=== PATIENT | male | born 1985 | race Caucasian/White ===

== ENCOUNTER 2025-03-14 03:13 | Observation (INO) ==
[2025-03-14] MEDS: MoRPHine SULFATE 4 MG/ML 1 ML CARP\\VIAL IV STA (03:25)
[2025-03-14] MEDS: ONDANSETRON INJ 2 MG/ML 2 ML VIAL IV STA (03:25)
--- NOTE | 2025-03-14 03:25 | Emergency Department Note ---
Impression & Plan Kidney stone Admission ED Provider Note HPI: History obtained from patient. The patient is a 40-year-old male who presents to the emergency department with chief complaint of left flank pain as well as nausea and vomiting. Patient states that his pain developed about 2 hours prior to arrival to the ED tonight. Patient states it does feel similar to kidney stones that he has had in the past. On arrival here to the ER, the patient is hemodynamically stable. He did receive Toradol and Zofran prior to arrival via EMS. Patient otherwise appears to be in no acute distress. ROS: - Per HPI Differential Diagnosis: Kidney stone, pyelonephritis, urinary tract infection, diverticulitis flare, acute appendicitis, amongst other potential pathologies. *Outpatient medications and allergy history reviewed. PE: General: Alert HEENT: Normocephalic, trachea midline Eyes: Extraocular eye movement is intact, no scleral erythema Pulmonary: Clear to auscultation bilaterally, no wheezing Cardio: Regular rate and rhythm GI: Abdomen is soft to palpation : No suprapubic tenderness, moderate left flank tenderness to palpation MSK: No evidence of trauma or malformation of the extremities, no edema Skin: No evidence of rash Neuro: Alert, no focal deficits Psychiatric: Cooperative INDEPENDENT INTERPRETATIONS: monitor worker: (As interpreted by myself): - An order was placed for continuous cardiac monitoring - Patient was noted to be in sinus rhythm with a rate of 90 EKG: (As interpreted by myself): Rate: 87 Rhythm: Normal sinus rhythm Intervals: Within normal limits ST changes: No ST elevation Time: 0329 Interventions provided in ED: - IV morphine, IV Zofran, IV Dilaudid, IV fluid bolus Medical Decision Making: IV was established and lab work obtained, patient was placed on vehicle monitor technician. Lab work shows a mild leukocytosis at 12.95, hemoglobin is normal, platelet count is normal, CMP does not show any evidence of any critical findings. No evidence of acute kidney injury, troponin is negative x 1. EKG per my interpretation shows normal sinus rhythm without any acute ischemic changes. CT imaging of the abdomen and pelvis was obtained and shows evidence of a 4 mm kidney stone on the left side with some associated hydronephrosis, stone is noted to be at the area just proximal to the UVJ. Urinalysis does not show evidence of infection. Patient did require multiple doses of opioid pain medicine here in the ED for control. He was given Toradol prior to arrival to the ED. I discussed all of the above findings with the patient, he tells me his pain is greatly improved on my reassessment. He states he has seen Dr. Baker in the past from urology for his stones. He was given information to call and schedule an appointment and also an ambulatory referral was placed. Shortly after the patient's second dose of Dilaudid, he was feeling improved but then again began to complain of pain, I reevaluated the patient and he was stating that he was having again severe pain in the left flank. Given this he was given another dose of Dilaudid and he will require admission for intractable pain. Patient was in agreement to this plan. Urology consultation was placed. Case was discussed with the on-call hospitalist, Dr. Hackett, the patient was placed for admission in stable condition. Diagnosis: 1. Kidney stone, left ureter, acute 2. Intractable left flank pain secondary to obstructive kidney stone, acute 3. Hematuria, acute 4. Hypertension Disposition: Admission Clifford Burnette DO Emergency Medicine Past Med/Surg History Problem List (Updated 03/14/25 @ 05:01 by Clifford Burnette DO) Kidney stone (Acute) Gross hematuria Nephrolithiasis Medical History Asthma Surgical History No pertinent past surgical history Family History Grandfather (Maternal) Prostate cancer Father Diabetes Heart disease Mother Hypertension Social History Smoking Status: Never smoker Preferred Language: Argentine marital status: Single current occupational status: employed Feels Safe at Home: Yes Allergies Allergies Allergy/AdvReac Type Severity Reaction Status Date / Time amoxicillin Allergy Mild GI UPSET Verified 02/08/23 15:13 clavulanic acid Allergy Mild GI UPSET Verified 02/08/23 15:13 Dust AdvReac Unknown Uncoded 02/08/23 15:13 Dust Mite AdvReac Unknown Uncoded 02/08/23 15:13 Home Meds Home Medications Medication Instructions Recorded Confirmed ondansetron 4 mg disintegrating 4 mg translingual Q8H PRN Nausea 06/27/21 07/02/21 tablet oxycodone-acetaminophen 5 mg-325 1 tab PO Q4 PRN Pain 06/27/21 07/02/21 mg tablet Previous Rx's Medication Instructions Recorded metoclopramide HCl 10 mg tablet 10 mg PO BID PRN nausea and 06/27/21 (Reglan) vomiting #10 tabs ketorolac 10 mg tablet 10 mg PO TID PRN pain #10 tabs 07/02/21 oxycodone 5 mg tablet 5 mg PO Q4H PRN pain #15 tabs 08/09/21 tamsulosin 0.4 mg capsule 0.4 mg PO DAILY #30 caps 07/13/22 methylprednisolone 4 mg tablets in 4 mg PO DIRECTED #21 ea 05/01/23 a dose pack (Medrol (Shahbaz)) Results & Data (ED) Vital Signs Vital Signs - 24 hr 03/14/25 03:31 03/14/25 03:34 03/14/25 04:24 Temperature 36.8 C Temperature Source Oral Pulse Rate 78 94 H Pulse Rate [Finger] 88 Respiratory Rate 26 H 18 Blood Pressure 188/110 H Blood Pressure [Right Arm] 192/121 H Blood Pressure Mean 136 Blood Pressure Mean [Right Arm] 144 Pulse Oximetry 97 95 Oxygen Delivery Method Room Air Room Air Sepsis Recent Fever Within 48 Hours No Sepsis New/Unexplained Change in Mental Status N/A Sepsis Action Taken by Nursing No Action Required Laboratory Data 03/14/25 03:19 03/14/25 03:19 Lab Results 03/14/25 03/14/25 Range/Units 03:19 04:09 WBC 12.95 H (4.8-10.8) K/ul RBC 5.73 (4.70-6.10) M/uL Hgb 15.5 (14.0-18.0) g/dl Hct 45.5 (42.0-52.0) % MCV 79.4 L (80.0-100.0) fL MCH 27.1 (25.0-34.0) pg MCHC 34.1 (32.0-36.0) g/dL RDW Std Deviation 38.5 (36.4-46.3) fL RDW Coeff of David 13.5 (11.5-14.5) % Plt Count 245 (130-400) K/uL MPV 10.3 (9.4-12.4) fL Immature Gran % (Auto) 0.7 % Neut % (Auto) 70.1 % Lymph % (Auto) 22.4 % [place] % (Auto) 6.3 % Eos % (Auto) 0.2 % Baso % (Auto) 0.3 % Neut # (Auto) 9.08 H (1.40-6.50) K/uL Lymph # (Auto) 2.90 (1.20-3.40) K/uL [place] # (Auto) 0.82 H (0.11-0.59) K/uL Eos # (Auto) 0.02 (0.00-0.50) K/uL Baso # (Auto) 0.04 (0.00-0.20) K/uL Immature Gran # (Auto) 0.09 (0.01-0.20) K/uL PT 11.6 (9.0-12.0) Seconds INR 1.1 (0.9-1.1) Sodium 139 (136-145) mmol/L Potassium 3.8 (3.5-5.1) mmol/L Chloride 102 (98-107) mmol/L Carbon Dioxide 30 (21-32) mmol/L Anion Gap 7 (3-11) BUN 13 (6-23) mg/dl Creatinine 0.97 (0.6-1.4) mg/dl Est Cr Clr Drug Dosing 123.4 ml/min eGFR 101.21 BUN/Creatinine Ratio 13.4 (10-20) Glucose 170 H (70-99(Fasting)) mg/dl Calcium 8.6 (8.6-10.3) mg/dl Total Bilirubin 0.7 (0.2-1.0) mg/dl AST 19 (13-39) U/L ALT 40 (7-52) U/L Alkaline Phosphatase 52 (34-104) U/L Troponin I High Sens 4.7 (0-20) pg/ml Total Protein 6.6 (6.0-8.3) gm/dl Albumin 4.3 (3.4-5.0) gm/dl Globulin 2.3 L (2.5-4.0) gm/dl Albumin/Globulin Ratio 1.9 (0.9-2) Lipase 6 L (11-82) U/L Urine Color Yellow Urine Appearance Clear (Clear) Urine pH 5.0 (4.5-7.5) Ur Specific [place] 1.020 (1.000-1.030) Urine Protein 2+ H (Negative) Urine Glucose (UA) Negative (Negative) Urine Ketones Trace H (Negative) Urine Blood 2+ H (Negative) Urine Nitrite Negative (Negative) Urine Bilirubin Negative (Negative) Urine Urobilinogen Negative (Negative) Ur Leukocyte Esterase Negative (Negative) Urine WBC (Auto) 0-5 (0-5) /hpf Urine RBC (Auto) 3-5 H (0-2) /hpf U Hyaline Cast (Auto) 3-5 H (0-2) /lpf U Epithel Cells (Auto) 0-2 (0-2) /hpf Urine Bacteria (Auto) None Seen (None Seen) Urine Comment Administered Medications Discontinued Medications Hydromorphone HCl (Hydromorphone Inj 1 Mg/Ml Syringe) 1 mg IV NOW STA Stop: 03/14/25 03:53 Last Admin: 03/14/25 04:07 Dose: 1 mg Documented By: OLI Hydromorphone HCl (Hydromorphone Inj 1 Mg/Ml Syringe) 1 mg IV NOW STA Stop: 03/14/25 04:33 Last Admin: 03/14/25 04:34 Dose: 1 mg Documented By: VIMAL Sodium Chloride (Nss) 1,000 mls @ 999 mls/hr IV .Q1H1M ONE Stop: 03/14/25 04:24 Last Infusion: 03/14/25 04:32 Dose: Infused Documented By: Admin: 03/14/25 03:26 Dose: 999 mls/hr Documented By: VIMAL Sodium Chloride (Nss) 500 mls @ 999 mls/hr IV .Q31M ONE Stop: 03/14/25 05:29 Last Admin: 03/14/25 05:01 Dose: 999 mls/hr Documented By: VIMAL Morphine Sulfate (Morphine Sulfate 4 Mg/Ml 1 Ml Carp\Vial) 4 mg IV NOW STA Stop: 03/14/25 03:24 Last Admin: 03/14/25 03:25 Dose: 4 mg Documented By: VIMAL Ondansetron HCl (Ondansetron Inj 2 Mg/Ml 2 Ml Vial) 4 mg IV NOW STA Stop: 03/14/25 03:24 Last Admin: 03/14/25 03:25 Dose: 4 mg Documented By: [facility] Imaging Data Radiologist's Impression: Abdomen/Pelvis CT 03/14/25 03:23 EXAM: CT abd pelvis wo con CLINICAL HISTORY: L flank pain TECHNIQUE: Contiguous axial images were obtained from the level of the diaphragm to the pubic symphysis without intravenous or oral contrast. Coronal and sagittal reconstructions were also performed and indicated to increase the sensitivity for detecting clinically relevant pathology. The CT scan was performed according to ALARA (as low as reasonably achievable) principles. 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 FINDINGS: The visualized lung bases are clear. Evaluation of the abdominal and pelvic visceral organs is limited without intravenous contrast. The unenhanced liver, spleen, pancreas, and adrenal glands are grossly unremarkable. The gallbladder is present. The kidneys are normal in size and attenuation without obvious calcification. The left kidney shows hydronephrosis and hydroureter up to an obstructing calculus of size 4 mm, which is noted in the left lower ureter just proximal to the vesicoureteric junction. No adenopathy or fluid collections are seen. There is no evidence of focal or diffuse bowel wall thickening or bowel obstruction. No imaging evidence of appendicitis. The aorta is normal in caliber. The urinary bladder is normal in contour. The pelvic viscera are grossly unremarkable. No aggressive appearing osseous lesions are identified. IMPRESSION: The left kidney shows hydronephrosis and hydroureter up to an obstructing calculus of size 4 mm, which is noted in the left lower ureter just proximal to the vesicoureteric junction. This is a new finding. The prior right ureteric stone has passed. The prior left nephrolithiasis is also not seen. Electronically signed by Devin Montesinos 03-14-2025 04:52 AM Discharge Plan Visit Data Chief Complaint: Flank Pain Stated Complaint: L FLANK PAIN, HYPERTENSIVE ED Provider: Clifford Burnette Discharge Problem: Kidney stone Patient Disposition: Admitted As Inpatient Condition: Good Discharge Instructions Krames/Other Patient Handouts: ED [facility] Kidney Stone Forms Stand Alone Forms: [facility] [employer], Important Visit Information Prescriptions Prescriptions: No Action ketorolac 10 mg tablet 10 mg PO TID PRN (Reason: pain) Qty: 10 0RF Rx Instructions: Take as needed for kidney stone pain. Do not take with ibuprofen. tamsulosin 0.4 mg capsule 0.4 mg PO DAILY Qty: 30 0RF oxycodone 5 mg tablet 5 mg PO Q4H PRN (Reason: pain) Qty: 15 0RF Rx Instructions: Initial Treatment metoclopramide HCl [Reglan] 10 mg tablet 10 mg PO BID PRN (Reason: nausea and vomiting) Qty: 10 0RF Rx Instructions: administer 30 minutes before meals ondansetron 4 mg tablet,disintegrating 4 mg translingual Q8H PRN (Reason: Nausea) oxycodone-acetaminophen 5-325 mg tablet 1 tab PO Q4 PRN (Reason: Pain) methylprednisolone [Medrol (Shahbaz)] 4 mg tablets,dose pack 4 mg PO DIRECTED Qty: 21 0RF Ambulatory Orders: Urology Amb Referral (Routine) Timeframe: 1 Day Location: None Selected Ordered By: Clifford Burnette Referrals Referrals: Isaiah Romero DO [Primary Care Provider] - Juan C Baker MD [Physician] -
[2025-03-14] MEDS: SODIUM CHLORIDE 0.9% 1,000 ML IV ONE ×2 (03:26→06:39)
[2025-03-14 03:32] LABS: Hematocrit (blood only) 45.5 % (42.0-52.0); Hemoglobin 15.5 g/dl (14.0-18.0); Immature Granulocytes # (auto) 0.09 K/uL (0.01-0.20); Immature Granulocytes % (auto) 0.7 %; Mean Corpuscular Hemoglobin 27.1 pg (25.0-34.0); Mean Corpuscular Volume 79.4 fL (80.0-100.0); Platelet Count 245 K/uL (130-400); RDW Standard Deviation 38.5 fL (36.4-46.3); Red Blood Count 5.73 M/uL (4.70-6.10); White Blood Count 12.95 K/ul (4.8-10.8)
[2025-03-14 03:50] LABS: Alanine Aminotransferase 40.0 U/L (7-52); Albumin Globulin Ratio 1.9 (0.9-2); Albumin Level 4.3 gm/dl (3.4-5.0); Alkaline Phosphatase 52.0 U/L (34-104); Anion Gap 7.0 (3-11); Bilirubin,Total 0.7 mg/dl (0.2-1.0); Blood Urea Nitrogen 13.0 mg/dl (6-23); Calcium 8.6 mg/dl (8.6-10.3); Carbon Dioxide 30.0 mmol/L (21-32); Chloride 102.0 mmol/L (98-107); Creatinine Clr Calc Pharmacy 123.4 ml/min; Globulin 2.3 gm/dl (2.5-4.0); Glucose 170.0 mg/dl (70-99(Fasting)); Lipase 6.0 U/L (11-82); Potassium 3.8 mmol/L (3.5-5.1); Sodium 139.0 mmol/L (136-145); Total Protein 6.6 gm/dl (6.0-8.3)
[2025-03-14 04:04] LABS: INR 1.1 (0.9-1.1); Prothrombin Time 11.6 Seconds (9.0-12.0)
[2025-03-14] MEDS: HYDROmorphone INJ 1 MG/ML SYRINGE IV STA ×3 (04:07→05:31)
[2025-03-14 04:29] LABS: Appearance Urine Clear (Clear); Bacteria Urine Automated None Seen (None Seen); Epithelial Cell Urine Auto 0-2 /hpf (0-2); Glucose Urine UA Negative (Negative); WBC Urine Automated 0-5 /hpf (0-5)
--- NOTE | 2025-03-14 04:52 | CT Scan Report ---
EXAM: CT abd pelvis wo con CLINICAL HISTORY: L flank pain TECHNIQUE: Contiguous axial images were obtained from the level of the diaphragm to the pubic symphysis without intravenous or oral contrast. Coronal and sagittal reconstructions were also performed and indicated to increase the sensitivity for detecting clinically relevant pathology. The CT scan was performed according to ALARA (as low as reasonably achievable) principles. 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 FINDINGS: The visualized lung bases are clear. Evaluation of the abdominal and pelvic visceral organs is limited without intravenous contrast. The unenhanced liver, spleen, pancreas, and adrenal glands are grossly unremarkable. The gallbladder is present. The kidneys are normal in size and attenuation without obvious calcification. The left kidney shows hydronephrosis and hydroureter up to an obstructing calculus of size 4 mm, which is noted in the left lower ureter just proximal to the vesicoureteric junction. No adenopathy or fluid collections are seen. There is no evidence of focal or diffuse bowel wall thickening or bowel obstruction. No imaging evidence of appendicitis. The aorta is normal in caliber. The urinary bladder is normal in contour. The pelvic viscera are grossly unremarkable. No aggressive appearing osseous lesions are identified. IMPRESSION: The left kidney shows hydronephrosis and hydroureter up to an obstructing calculus of size 4 mm, which is noted in the left lower ureter just proximal to the vesicoureteric junction. This is a new finding. The prior right ureteric stone has passed. The prior left nephrolithiasis is also not seen. Electronically signed by Devin Montesinos 03-14-2025 04:52 AM
[2025-03-14] MEDS: SODIUM CHLORIDE 0.9% 500 ML IV ONE (05:01)
[2025-03-14] MEDS: PERCOCET 5/325MG HOMEPACK PO ONE (05:33)
[2025-03-14] MEDS: TAMSULOSIN HCL 0.4 MG CAP PO ONE (05:38)
--- NOTE | 2025-03-14 05:43 | History & Physical Report ---
Date of Service March 14, 2025 Assessment & Plan (1) Asymptomatic hypertensive urgency: Plan: Assessment and plan below following discussion of case with ED provider and reviewing patient history/pertinent normal/abnormal diagnostic test results. Hypertensive urgency Secondary to obstructive uropathy from recurrent kidney stone No sepsis for now DM2 on oral medications, BG currently elevated secondary to current steroid Rx for posttraumatic sacral pain, outpatient hemoglobin A1c from January 2025 was 5.8 Admit to med/tele IV hydralazine now Analgesia Initiate maintenance lisinopril if with persistent BP elevation Flomax trial Strain urine Urology consult re: obstructive uropathy (Patient known to [facility] N.p.o. until patient seen by urology in anticipation of procedure Basal bolus insulin adjusted for n.p.o. status, ISS BG goal 110-140 DVT prophylaxis. SCDs Re: Hematuria Full code Text document was generated using [employer] voice recognition software. It may contain grammatical or spelling errors. Kindly contact undersigned for clarification of any documentation item in question. History of Present Illness Chief Complaint: Left flank pain Primary Care Provider: Isaiah Romero DO History obtained from patient, family, and records. Medical history significant for hypertension, DM2 on oral medications, urolithiasis, GERD, tailbone pain currently on steroid Rx. Patient with persistent left buttock pain after participating in a [employer] event last month. Outpatient plain x-ray negative. Improving symptoms after recent outpatient steroid course started by PCP a few days ago. Patient experienced achy left flank pain last night associated with nausea, vomiting, hematuria. No fever, no chills. No headache. No chest pain, no SOB. Reminiscent of kidney stone pain. Intractable discomfort at the ER. Highest SBP of 190s documented at the ER. 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 Allergies Allergy/AdvReac Type Severity Reaction Status Date / Time amoxicillin Allergy Mild GI UPSET Verified 02/08/23 15:13 clavulanic acid Allergy Mild GI UPSET Verified 02/08/23 15:13 Dust AdvReac Unknown Uncoded 02/08/23 15:13 Dust Mite AdvReac Unknown Uncoded 02/08/23 15:13 Home Medications Medication Instructions Recorded Confirmed Type methylprednisolone 4 mg tablets in 4 mg PO DIRECTED #21 ea 05/01/23 03/14/25 Rx a dose pack (Medrol (Shahbaz)) Contour Next Test Strips 03/14/25 03/14/25 History FreeStyle Gaudencio 3 Plus Sensor 03/14/25 03/14/25 History FreeStyle Gaudencio 3 [place] 03/14/25 03/14/25 History Multi Vitamin 1 tab PO QAM 03/14/25 03/14/25 History Vitamin D3 2,000 units PO QAM 03/14/25 03/14/25 History albuterol sulfate 2 puff PO QID PRN Shortness Of 03/14/25 03/14/25 History Breath Or Wheezing blood-glucose meter (Contour Next 03/14/25 03/14/25 History EZ Meter kit) clindamycin phosphate 1 % lotion 1 applic topical BID 03/14/25 03/14/25 History cyanocobalamin (vitamin B-12) 100 100 mcg PO DAILY 03/14/25 03/14/25 History mcg tablet lancets 03/14/25 03/14/25 History metformin 1,000 mg tablet,extended 1,000 mg PO DAILY 03/14/25 03/14/25 History release 24hr (osmotic) methocarbamol 750 mg tablet 750 mg PO QID PRN Muscle spasms 03/14/25 03/14/25 History mupirocin 2 % topical ointment 1 applic topical DIRECTED 03/14/25 03/14/25 History Past Med/Surg History Problem List (Updated 03/14/25 @ 06:48 by Khalif Hackett MD) Asymptomatic hypertensive urgency Kidney stone (Acute) Gross hematuria Nephrolithiasis Medical History Asthma Surgical History No pertinent past surgical history Family History Grandfather (Maternal) Prostate cancer Father Diabetes Heart disease Mother Hypertension Social History Smoking Status: Never smoker Preferred Language: Turkmen marital status: Single current occupational status: employed Feels Safe at Home: Yes Review of Systems Review of Systems: As per HPI, all other systems reviewed and negative Physical Exam Physical Exam: GENERAL: Pleasant, slightly uncomfortable, obese, no respiratory distress SKIN: Normal color, warm HEENT: Alopecia, pink palpebral conjunctivae, no ptosis, dry buccal mucosa NECK : Supple, no tenderness CHEST : CTA, no tenderness HEART : RRR, no obvious murmurs ABDOMEN: Some distention, nontender BACK : Left flank tenderness EXTREMITIES : No LE swelling/tenderness, palpable pulses, no other conspicuous deformities noted NEUROLOGIC : Coherent, no facial asymmetry, no other gross focality Results & Data Results & Data Vital Signs (Past 12 Hours) Vital Signs Temp Pulse Pulse Resp BP BP Pulse Ox 03/14/25 04:24 88 18 192/121 H 95 03/14/25 03:34 94 H 03/14/25 03:31 36.8 C 78 26 H 188/110 H 97 O2 Del Method 03/14/25 04:24 Room Air 03/14/25 03:34 03/14/25 03:31 Room Air Laboratory Results Laboratory Results WBC 12.95 K/ul (4.8-10.8) H 03/14/25 03:19 RBC 5.73 M/uL (4.70-6.10) 03/14/25 03:19 Hgb 15.5 g/dl (14.0-18.0) 03/14/25 03:19 Hct 45.5 % (42.0-52.0) 03/14/25 03:19 MCV 79.4 fL (80.0-100.0) L 03/14/25 03:19 MCH 27.1 pg (25.0-34.0) 03/14/25 03:19 MCHC 34.1 g/dL (32.0-36.0) 03/14/25 03:19 RDW Std Deviation 38.5 fL (36.4-46.3) 03/14/25 03:19 RDW Coeff of David 13.5 % (11.5-14.5) 03/14/25 03:19 Plt Count 245 K/uL (130-400) 03/14/25 03:19 MPV 10.3 fL (9.4-12.4) 03/14/25 03:19 Immature Gran % (Auto) 0.7 % 03/14/25 03:19 Neut % (Auto) 70.1 % 03/14/25 03:19 Lymph % (Auto) 22.4 % 03/14/25 03:19 [place] % (Auto) 6.3 % 03/14/25 03:19 Eos % (Auto) 0.2 % 03/14/25 03:19 Baso % (Auto) 0.3 % 03/14/25 03:19 Neut # (Auto) 9.08 K/uL (1.40-6.50) H 03/14/25 03:19 Lymph # (Auto) 2.90 K/uL (1.20-3.40) 03/14/25 03:19 [place] # (Auto) 0.82 K/uL (0.11-0.59) H 03/14/25 03:19 Eos # (Auto) 0.02 K/uL (0.00-0.50) 03/14/25 03:19 Baso # (Auto) 0.04 K/uL (0.00-0.20) 03/14/25 03:19 Immature Gran # (Auto) 0.09 K/uL (0.01-0.20) 03/14/25 03:19 PT 11.6 Seconds (9.0-12.0) 03/14/25 03:19 INR 1.1 (0.9-1.1) 03/14/25 03:19 Sodium 139 mmol/L (136-145) 03/14/25 03:19 Potassium 3.8 mmol/L (3.5-5.1) 03/14/25 03:19 Chloride 102 mmol/L (98-107) 03/14/25 03:19 Carbon Dioxide 30 mmol/L (21-32) 03/14/25 03:19 Anion Gap 7 (3-11) 03/14/25 03:19 BUN 13 mg/dl (6-23) 03/14/25 03:19 Creatinine 0.97 mg/dl (0.6-1.4) 03/14/25 03:19 Est Cr Clr Drug Dosing 123.4 ml/min 03/14/25 03:19 eGFR 101.21 03/14/25 03:19 BUN/Creatinine Ratio 13.4 (10-20) 03/14/25 03:19 Glucose 170 mg/dl (70-99(Fasting)) H 03/14/25 03:19 Calcium 8.6 mg/dl (8.6-10.3) 03/14/25 03:19 Total Bilirubin 0.7 mg/dl (0.2-1.0) 03/14/25 03:19 AST 19 U/L (13-39) 03/14/25 03:19 ALT 40 U/L (7-52) 03/14/25 03:19 Alkaline Phosphatase 52 U/L (34-104) 03/14/25 03:19 Troponin I High Sens 4.7 pg/ml (0-20) 03/14/25 03:19 Total Protein 6.6 gm/dl (6.0-8.3) 03/14/25 03:19 Albumin 4.3 gm/dl (3.4-5.0) 03/14/25 03:19 Globulin 2.3 gm/dl (2.5-4.0) L 03/14/25 03:19 Albumin/Globulin Ratio 1.9 (0.9-2) 03/14/25 03:19 Lipase 6 U/L (11-82) L 03/14/25 03:19 Urine Color Yellow 03/14/25 04:09 Urine Appearance Clear (Clear) 03/14/25 04:09 Urine pH 5.0 (4.5-7.5) 03/14/25 04:09 Ur Specific [place] 1.020 (1.000-1.030) 03/14/25 04:09 Urine Protein 2+ (Negative) H 03/14/25 04:09 Urine Glucose (UA) Negative (Negative) 03/14/25 04:09 Urine Ketones Trace (Negative) H 03/14/25 04:09 Urine Blood 2+ (Negative) H 03/14/25 04:09 Urine Nitrite Negative (Negative) 03/14/25 04:09 Urine Bilirubin Negative (Negative) 03/14/25 04:09 Urine Urobilinogen Negative (Negative) 03/14/25 04:09 Ur Leukocyte Esterase Negative (Negative) 03/14/25 04:09 Urine WBC (Auto) 0-5 /hpf (0-5) 03/14/25 04:09 Urine RBC (Auto) 3-5 /hpf (0-2) H 03/14/25 04:09 U Hyaline Cast (Auto) 3-5 /lpf (0-2) H 03/14/25 04:09 U Epithel Cells (Auto) 0-2 /hpf (0-2) 03/14/25 04:09 Urine Bacteria (Auto) None Seen (None Seen) 03/14/25 04:09 Urine Comment 03/14/25 04:09 Impressions Abdomen/Pelvis CT 03/14/25 03:23 EXAM: CT abd pelvis wo con CLINICAL HISTORY: L flank pain TECHNIQUE: Contiguous axial images were obtained from the level of the diaphragm to the pubic symphysis without intravenous or oral contrast. Coronal and sagittal reconstructions were also performed and indicated to increase the sensitivity for detecting clinically relevant pathology. The CT scan was performed according to ALARA (as low as reasonably achievable) principles. 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 FINDINGS: The visualized lung bases are clear. Evaluation of the abdominal and pelvic visceral organs is limited without intravenous contrast. The unenhanced liver, spleen, pancreas, and adrenal glands are grossly unremarkable. The gallbladder is present. The kidneys are normal in size and attenuation without obvious calcification. The left kidney shows hydronephrosis and hydroureter up to an obstructing calculus of size 4 mm, which is noted in the left lower ureter just proximal to the vesicoureteric junction. No adenopathy or fluid collections are seen. There is no evidence of focal or diffuse bowel wall thickening or bowel obstruction. No imaging evidence of appendicitis. The aorta is normal in caliber. The urinary bladder is normal in contour. The pelvic viscera are grossly unremarkable. No aggressive appearing osseous lesions are identified. IMPRESSION: The left kidney shows hydronephrosis and hydroureter up to an obstructing calculus of size 4 mm, which is noted in the left lower ureter just proximal to the vesicoureteric junction. This is a new finding. The prior right ureteric stone has passed. The prior left nephrolithiasis is also not seen. Electronically signed by Devin Montesinos 03-14-2025 04:52 AM Diagnostic Findings EKG as per my interpretation :Rate 85, NSR, normal axis, LVH, T wave flattening lateral leads
[2025-03-14] MEDS ORDERED: LORazepam 0.5 MG TAB PO PRN (06:17)
[2025-03-14] MEDS ORDERED: METHOCARBAMOL 750 MG TABLET PO PRN (06:25)
[2025-03-14] MEDS: PROMETHAZINE 12.5 MG/50.5 ML BAG IV PRN (06:39)
[2025-03-14] MEDS: methylPREDNISolone 4 MG TAB PO SCH ×2 (07:48→12:15)
[2025-03-14] MEDS: CYANOCOBALAMIN (B-12) 100 MCG TABLET PO SCH (07:51)
[2025-03-14] MEDS: MULTIVITAMIN TAB PO SCH (07:51)
[2025-03-14] MEDS: LANTUS PER UNIT CHARGE SQ SCH (08:18)
[2025-03-14] MEDS: LACTATED RINGER'S 1,000 ML IV SCH (08:24)
[2025-03-14] MEDS: HYDROmorphone INJ 1 MG/ML SYRINGE IV PRN (08:28)
--- NOTE | 2025-03-14 08:38 | Electrocardiogram Report ---
Test Reason : Blood Pressure : */* mmHG Vent. Rate : 87 BPM Atrial Rate : 87 BPM P-R Int : 114 ms QRS Dur : 78 ms QT Int : 376 ms P-R-T Axes : 43 9 64 degrees QTcB Int : 452 ms Normal sinus rhythm Minimal voltage criteria for LVH, may be normal variant Nonspecific ST and T wave abnormality Abnormal ECG When compared with ECG of 19-Jun-2023 21:29, Nonspecific T wave abnormality has replaced inverted T waves in Lateral leads Confirmed by Jack Sandhu ([id number]) on 03/14/2025 8:38:01 AM Referred By: REFERRED SELF Confirmed By: Jack Sandhu
[2025-03-14] MEDS ORDERED: DEXTROSE 50% 50 ML SYRINGE IV PRN (08:49)
[2025-03-14] MEDS ORDERED: GLUCAGON FOR INJ 1 MG VIAL SQ PRN (08:49)
[2025-03-14] MEDS ORDERED: GLUCOSE 10 TAB/TUBE PO PRN (08:49)
[2025-03-14] MEDS ORDERED: GLUCOSE 40% GEL 15 GM TUBE PO PRN (08:49)
[2025-03-14] MEDS ORDERED: CARBOHYDRATES FOR HYPOGLYCEMIA PO PRN (08:49)
[2025-03-14] MEDS: INSULIN ASPART PER UNIT CHARGE SC SCH (08:55)
[2025-03-14] MEDS: LOSARTAN POTASSIUM 50 MG TAB PO SCH (09:19)
--- NOTE | 2025-03-14 09:20 | Hospitalist Progress Note ---
Date of Service March 14, 2025 Assessment & Plan (1) Asymptomatic hypertensive urgency: Plan: Renal colic Obstructive uropathy SIRS --CT abd:The left kidney shows hydronephrosis and hydroureter up to an obstructing calculus of size 4 mm, which is noted in the left lower ureter just proximal to the vesicoureteric junction. This is a new finding. The prior right ureteric stone has passed. The prior left nephrolithiasis is also not seen. -- Conservative management for now Appreciate urology input Continue IV fluids, Flomax Pain control as needed Strain urine N.p.o. after midnight for possible procedure tomorrow if conservative management fails Hypertensive urgency Likely situational Started on losartan 50 mg daily IV hydralazine as needed Monitor and adjust medications as needed DM II Last HbA1c in January 2025 5.8 Hold metformin Continue insulin per protocol Monitor blood glucose levels Posttraumatic sacral pain Continue steroid taper course DVT Px: SCDs for now CODE STATUS Full code Admission and Anticipated Discharge Date Admission Date: March 14, 2025 Subjective Patient is seen and examined at bedside States having nausea associated with vomiting and left flank pain Denies any dysuria, hematuria, chest pain, shortness of breath No other complaints today Review of Systems Review of Systems: All systems reviewed & are unremarkable except as noted in Subjective Physical Exam Physical Exam: Physical Exam: Vitals signs as noted above General Appearance:Obese, no apparent distress Head: normocephalic, Atraumatic Eyes: normal inspection, EOMI Neck: supple, Trachea midline Respiratory/Chest: Decreased breath sounds, CTA, No accessory muscle use Cardiovascular: S1, S2, No murmur, Tachycardia Abdomen/GI:Soft, L flank tender, Bowel sounds present Extremities/Musculoskeletal:normal inspection, no edema Neurologic/Psych:AAOX3, grossly no focal neurological deficits Skin: normal color, warm Results & Data Results & Data Vital Signs (Past 12 Hours) Vital Signs Temp Pulse Pulse Resp BP BP Pulse Ox 03/14/25 08:30 97 H 200/133 H 03/14/25 08:00 86 16 145/111 H 99 03/14/25 07:11 87 03/14/25 04:24 88 18 192/121 H 95 03/14/25 03:34 94 H 03/14/25 03:31 36.8 C 78 26 H 188/110 H 97 O2 Del Method O2 Flow Rate 03/14/25 08:30 03/14/25 08:00 Nasal Cannula 2 03/14/25 07:11 03/14/25 04:24 Room Air 03/14/25 03:34 03/14/25 03:31 Room Air Laboratory Results Short CBC 03/14/25 Range/Units 03:19 WBC 12.95 H (4.8-10.8) K/ul Hgb 15.5 (14.0-18.0) g/dl Hct 45.5 (42.0-52.0) % Plt Count 245 (130-400) K/uL BMP 03/14/25 03:19 Sodium 139 Potassium 3.8 Chloride 102 Carbon Dioxide 30 BUN 13 Creatinine 0.97 Glucose 170 H Calcium 8.6 Liver Function 03/14/25 Range/Units 03:19 Total Bilirubin 0.7 (0.2-1.0) mg/dl AST 19 (13-39) U/L ALT 40 (7-52) U/L Alkaline Phosphatase 52 (34-104) U/L Albumin 4.3 (3.4-5.0) gm/dl Urine 03/14/25 Range/Units 04:09 Urine Color Yellow Urine Appearance Clear (Clear) Urine pH 5.0 (4.5-7.5) Ur Specific [place] 1.020 (1.000-1.030) Urine Protein 2+ H (Negative) Urine Glucose (UA) Negative (Negative)
[2025-03-14] MEDS: KETOROLAC TROMETHAMINE 15 MG/ML VIAL IV PRN (11:21)
[2025-03-14] MEDS: ONDANSETRON INJ 2 MG/ML 2 ML VIAL IV PRN (11:24)
--- NOTE | 2025-03-14 12:10 | Urology Consultation ---
Date of Consultation March 14, 2025 Assessment & Plan (1) Kidney stone: We reviewed the stone seen on the CT scan. At 4 mm, he has a decent chance of spontaneous passage, however currently his pain is not controlled. We discussed the possible role for cystoscopy, left retrograde pyelogram and left ureteral stent placement. We did associated risks of bleeding, infection, inability to place stent, additional procedures, stent discomfort. He does not want to go a surgical intervention if he does not have to. We discussed the alternative of medical expulsive therapy and that this would include pain control/nausea control, hydration and tamsulosin to try to help pass the stone. At this point, I think if he were to go home, he would return quickly to the emergency department due to intractable pain. He was still like to give it some time to try to pass the stone. After discussion of options, we will hold off surgical intervention for now. Would recommend pain control with Tylenol, NSAIDs, tamsulosin. He can use narcotics if needed for breakthrough pain. Would recommend hydration. Okay for him to have a diet today, but please have him n.p.o. at midnight in case he is unable to pass the stone. Please strain all urine. History of Present Illness Attending Physician: Luis Rosales MD History of Present Illness This is a 40-year-old male with history of nephrolithiasis who presented to the emergency department on 03/14/2025 with intractable left-sided flank pain and nausea. Workup in the ED was notable for mild leukocytosis (WBC 12.5) within normal limits at 0.7. Urinalysis demonstrated 2+ blood but was negative beside esterase, negative nitrites and no bacteria were seen. He had a CT scan of the abdomen and pelvis performed. I reviewed these images from 03/14/2025. Both kidneys are in normal position. I do not appreciate any stones in the left kidney. There is a punctate calcification in the right kidney. There is mild hydronephrosis and hydroureter on the left extending down to a 4 mm stone at almost at the level of the bladder. Bladder appears grossly normal, as does his prostate. Urology was consulted regarding his kidney stone. He has a history of stones but he has always been able to pass them spontaneously. He is still having pain at this point. He denies any fevers or chills or recent UTI symptoms. Allergies Allergy/AdvReac Type Severity Reaction Status Date / Time amoxicillin Allergy Mild GI UPSET Verified 02/08/23 15:13 clavulanic acid Allergy Mild GI UPSET Verified 02/08/23 15:13 Dust AdvReac Unknown Uncoded 02/08/23 15:13 Dust Mite AdvReac Unknown Uncoded 02/08/23 15:13 Home Medications Medication Instructions Recorded Confirmed Type methylprednisolone 4 mg tablets in 4 mg PO DIRECTED #21 ea 05/01/23 03/14/25 Rx a dose pack (Medrol (Shahbaz)) Contour Next Test Strips 03/14/25 03/14/25 History FreeStyle Gaudencio 3 Plus Sensor 03/14/25 03/14/25 History FreeStyle Gaudencio 3 [place] 03/14/25 03/14/25 History Multi Vitamin 1 tab PO QAM 03/14/25 03/14/25 History Vitamin D3 2,000 units PO QAM 03/14/25 03/14/25 History albuterol sulfate 2 puff PO QID PRN Shortness Of 03/14/25 03/14/25 History Breath Or Wheezing blood-glucose meter (Contour Next 03/14/25 03/14/25 History EZ Meter kit) clindamycin phosphate 1 % lotion 1 applic topical BID 03/14/25 03/14/25 History cyanocobalamin (vitamin B-12) 100 100 mcg PO DAILY 03/14/25 03/14/25 History mcg tablet lancets 03/14/25 03/14/25 History metformin 1,000 mg tablet,extended 1,000 mg PO DAILY 03/14/25 03/14/25 History release 24hr (osmotic) methocarbamol 750 mg tablet 750 mg PO QID PRN Muscle spasms 03/14/25 03/14/25 History mupirocin 2 % topical ointment 1 applic topical DIRECTED 03/14/25 03/14/25 History Patient History Medical History Asthma Surgical History No pertinent past surgical history Family History Grandfather (Maternal) Prostate cancer Father Diabetes Heart disease Mother Hypertension Social History Smoking Status: Never smoker Preferred Language: Luxembourgish marital status: Single current occupational status: employed Feels Safe at Home: Yes Review of Systems Review of Systems: 10 point review of systems negative exce pt for otherwise indicated. Physical Exam Physical Exam: Uncomfortable appearing Eyes: + anicteric sclerae; pupils not irregula r Respiratory: normal respiratory effort; no respiratory distress, does not use accessory muscles and no cough Cardiovascular: well perfused Gastrointestinal (Abdomen): Inspection/Auscultation: abdomen normal to inspection; abdomen not distended Musculoskeletal: Extremities: extremities normal to inspection Skin: normal turgor; no rashes and no lesions Neurologic: moves all extremities and awake Psychiatric: Orientation: alert and oriented x 3 Results & Data Vital Signs (Past 12 Hours) Vital Signs Temp Pulse Pulse Resp BP BP Pulse Ox 03/14/25 09:24 190/119 H 95 03/14/25 08:30 97 H 200/133 H 03/14/25 08:00 86 16 145/111 H 99 03/14/25 07:11 87 03/14/25 04:24 88 18 192/121 H 95 03/14/25 03:34 94 H 03/14/25 03:31 36.8 C 78 26 H 188/110 H 97 O2 Del Method O2 Flow Rate 03/14/25 09:24 Room Air 03/14/25 08:30 03/14/25 08:00 Nasal Cannula 2 03/14/25 07:11 03/14/25 04:24 Room Air 03/14/25 03:34 03/14/25 03:31 Room Air PG Care Time/CCT Total # of Minutes Spent Total Time Spent with Patient: Total time spent is greater than 50% in coordination of care (as documented) at patient's floor/unit and/or counseling patient: Coding Level of Care Code 98612 OP VST NEW MOD 45 MIN Diagnoses Kidney stone N20.0
--- NOTE | 2025-03-14 14:58 | Discharge Summary ---
Date of Service March 14, 2025 Admission HPI Per Admitting Provider History obtained from patient, family, and records. Medical history significant for hypertension, DM2 on oral medications, urolithiasis, GERD, tailbone pain currently on steroid Rx. Patient with persistent left buttock pain after participating in a [employer] event last month. Outpatient plain x-ray negative. Improving symptoms after recent outpatient steroid course started by PCP a few days ago. Patient experienced achy left flank pain last night associated with nausea, vomiting, hematuria. No fever, no chills. No headache. No chest pain, no SOB. Reminiscent of kidney stone pain. Intractable discomfort at the ER. Highest SBP of 190s documented at the ER. 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 Admission Exam Per Admitting Provider GENERAL: Pleasant, slightly uncomfortable, obese, no respiratory distress SKIN: Normal color, warm HEENT: Alopecia, pink palpebral conjunctivae, no ptosis, dry buccal mucosa NECK : Supple, no tenderness CHEST : CTA, no tenderness HEART : RRR, no obvious murmurs ABDOMEN: Some distention, nontender BACK : Left flank tenderness EXTREMITIES : No LE swelling/tenderness, palpable pulses, no other conspicuous deformities noted NEUROLOGIC : Coherent, no facial asymmetry, no other gross focality Principal Diagnosis Renal colic Obstructive uropathy Hypertensive urgency Discharge Data Allergies Allergy/AdvReac Type Severity Reaction Status Date / Time amoxicillin Allergy Mild GI UPSET Verified 02/08/23 15:13 clavulanic acid Allergy Mild GI UPSET Verified 02/08/23 15:13 Dust AdvReac Unknown Uncoded 02/08/23 15:13 Dust Mite AdvReac Unknown Uncoded 02/08/23 15:13 Consultations 03/14/25 05:26 Consult Urology Routine 03/14/25 05:29 ED Decision to Admit Stat Procedures Performed Laboratory Results WBC 12.95 K/ul (4.8-10.8) H 03/14/25 03:19 RBC 5.73 M/uL (4.70-6.10) 03/14/25 03:19 Hgb 15.5 g/dl (14.0-18.0) 03/14/25 03:19 Hct 45.5 % (42.0-52.0) 03/14/25 03:19 MCV 79.4 fL (80.0-100.0) L 03/14/25 03:19 MCH 27.1 pg (25.0-34.0) 03/14/25 03:19 MCHC 34.1 g/dL (32.0-36.0) 03/14/25 03:19 RDW Std Deviation 38.5 fL (36.4-46.3) 03/14/25 03:19 RDW Coeff of David 13.5 % (11.5-14.5) 03/14/25 03:19 Plt Count 245 K/uL (130-400) 03/14/25 03:19 MPV 10.3 fL (9.4-12.4) 03/14/25 03:19 Immature Gran % (Auto) 0.7 % 03/14/25 03:19 Neut % (Auto) 70.1 % 03/14/25 03:19 Lymph % (Auto) 22.4 % 03/14/25 03:19 [place] % (Auto) 6.3 % 03/14/25 03:19 Eos % (Auto) 0.2 % 03/14/25 03:19 Baso % (Auto) 0.3 % 03/14/25 03:19 Neut # (Auto) 9.08 K/uL (1.40-6.50) H 03/14/25 03:19 Lymph # (Auto) 2.90 K/uL (1.20-3.40) 03/14/25 03:19 [place] # (Auto) 0.82 K/uL (0.11-0.59) H 03/14/25 03:19 Eos # (Auto) 0.02 K/uL (0.00-0.50) 03/14/25 03:19 Baso # (Auto) 0.04 K/uL (0.00-0.20) 03/14/25 03:19 Immature Gran # (Auto) 0.09 K/uL (0.01-0.20) 03/14/25 03:19 PT 11.6 Seconds (9.0-12.0) 03/14/25 03:19 INR 1.1 (0.9-1.1) 03/14/25 03:19 Sodium 139 mmol/L (136-145) 03/14/25 03:19 Potassium 3.8 mmol/L (3.5-5.1) 03/14/25 03:19 Chloride 102 mmol/L (98-107) 03/14/25 03:19 Carbon Dioxide 30 mmol/L (21-32) 03/14/25 03:19 Anion Gap 7 (3-11) 03/14/25 03:19 BUN 13 mg/dl (6-23) 03/14/25 03:19 Creatinine 0.97 mg/dl (0.6-1.4) 03/14/25 03:19 Est Cr Clr Drug Dosing 123.4 ml/min 03/14/25 03:19 eGFR 101.21 03/14/25 03:19 BUN/Creatinine Ratio 13.4 (10-20) 03/14/25 03:19 Glucose 170 mg/dl (70-99(Fasting)) H 03/14/25 03:19 POC Glucose 134 mg/dl (70-99) H 03/14/25 12:08 Calcium 8.6 mg/dl (8.6-10.3) 03/14/25 03:19 Total Bilirubin 0.7 mg/dl (0.2-1.0) 03/14/25 03:19 AST 19 U/L (13-39) 03/14/25 03:19 ALT 40 U/L (7-52) 03/14/25 03:19 Alkaline Phosphatase 52 U/L (34-104) 03/14/25 03:19 Troponin I High Sens 4.7 pg/ml (0-20) 03/14/25 03:19 Total Protein 6.6 gm/dl (6.0-8.3) 03/14/25 03:19 Albumin 4.3 gm/dl (3.4-5.0) 03/14/25 03:19 Globulin 2.3 gm/dl (2.5-4.0) L 03/14/25 03:19 Albumin/Globulin Ratio 1.9 (0.9-2) 03/14/25 03:19 Lipase 6 U/L (11-82) L 03/14/25 03:19 Urine Color Yellow 03/14/25 04:09 Urine Appearance Clear (Clear) 03/14/25 04:09 Urine pH 5.0 (4.5-7.5) 03/14/25 04:09 Ur Specific [place] 1.020 (1.000-1.030) 03/14/25 04:09 Urine Protein 2+ (Negative) H 03/14/25 04:09 Urine Glucose (UA) Negative (Negative) 03/14/25 04:09 Urine Ketones Trace (Negative) H 03/14/25 04:09 Urine Blood 2+ (Negative) H 03/14/25 04:09 Urine Nitrite Negative (Negative) 03/14/25 04:09 Urine Bilirubin Negative (Negative) 03/14/25 04:09 Urine Urobilinogen Negative (Negative) 03/14/25 04:09 Ur Leukocyte Esterase Negative (Negative) 03/14/25 04:09 Urine WBC (Auto) 0-5 /hpf (0-5) 03/14/25 04:09 Urine RBC (Auto) 3-5 /hpf (0-2) H 03/14/25 04:09 U Hyaline Cast (Auto) 3-5 /lpf (0-2) H 03/14/25 04:09 U Epithel Cells (Auto) 0-2 /hpf (0-2) 03/14/25 04:09 Urine Bacteria (Auto) None Seen (None Seen) 03/14/25 04:09 Urine Comment 03/14/25 04:09 Impressions Abdomen/Pelvis CT 03/14/25 03:23 EXAM: CT abd pelvis wo con CLINICAL HISTORY: L flank pain TECHNIQUE: Contiguous axial images were obtained from the level of the diaphragm to the pubic symphysis without intravenous or oral contrast. Coronal and sagittal reconstructions were also performed and indicated to increase the sensitivity for detecting clinically relevant pathology. The CT scan was performed according to ALARA (as low as reasonably achievable) principles. COMPARISON: 13:25:23 [employer]. FINDINGS: The visualized lung bases are clear. Evaluation of the abdominal and pelvic visceral organs is limited without intravenous contrast. The unenhanced liver, spleen, pancreas, and adrenal glands are grossly unremarkable. The gallbladder is present. The kidneys are normal in size and attenuation without obvious calcification. The left kidney shows hydronephrosis and hydroureter up to an obstructing calculus of size 4 mm, which is noted in the left lower ureter just proximal to the vesicoureteric junction. No adenopathy or fluid collections are seen. There is no evidence of focal or diffuse bowel wall thickening or bowel obstruction. No imaging evidence of appendicitis. The aorta is normal in caliber. The urinary bladder is normal in contour. The pelvic viscera are grossly unremarkable. No aggressive appearing osseous lesions are identified. IMPRESSION: The left kidney shows hydronephrosis and hydroureter up to an obstructing calculus of size 4 mm, which is noted in the left lower ureter just proximal to the vesicoureteric junction. This is a new finding. The prior right ureteric stone has passed. The prior left nephrolithiasis is also not seen. Electronically signed by Devin Montesinos 03-14-2025 04:52 AM Ordered Studies 03/14/25 03:23 CT abd pelvis wo con Stat Hospital Course (1) Asymptomatic hypertensive urgency: Renal colic Obstructive uropathy SIRS --CT abd:The left kidney shows hydronephrosis and hydroureter up to an obstructing calculus of size 4 mm, which is noted in the left lower ureter just proximal to the vesicoureteric junction. This is a new finding. The prior right ureteric stone has passed. The prior left nephrolithiasis is also not seen. -- Conservative management for now Appreciate urology input Continue IV fluids, Flomax Pain control as needed Strain urine Patient spontaneously passed the stone without any intervention Prefers to be discharged home today Advised to follow-up with urology as outpatient Hypertensive urgency Likely situational Started on losartan 50 mg daily IV hydralazine as needed Monitor and adjust medications as needed DM II Last HbA1c in January 2025 5.8 Hold metformin Continue insulin per protocol Monitor blood glucose levels Posttraumatic sacral pain Continue steroid taper course DVT Px: SCDs for now CODE STATUS Full code Disposition Home Total Time Total Time Spent Total Time Spent (In Minutes): 52 minutes Discharge Plan Discharge Items Patient Disposition: Home - Self-Care Reason For Visit: HTN URG, OBS UROPATHY Discharge Diagnosis: Renal colic Obstructive uropathy Hypertensive urgency Condition on Discharge: Good Activity: Per Instructions section Exercise/Sports: Gradually increase as tolerated Non-emergency contact: Primary Care Provider and Urologist Call non-emergency contact if: you have any medication questions, your symptoms worsen, your pain is concerning for you and you have a fever Follow-up/Referrals: Isaiah Romero, [Primary Care Provider] - Diet: Carb Consistent or DM2 Addtl Attending Provider Instructions: -- Follow-up with your primary care physician in 1 week -- Follow-up with your urologist as advised -- Monitor your blood pressure regularly as advised. Start taking losartan 50 mg daily for better control of your blood pressure. Discuss with your primary care physician for further adjustment of medications as needed. Seek immediate medical attention if your symptoms reoccur or worsen Please review medication list provided on discharge for any medication changes as instructed. Please call if you have any questions or problems. You can reach a [facility] hospitalist on duty at [facility] 24 hours a day by calling [phone] Pending Studies at Discharge: No Stand-Alone Forms: [facility], Smoking Cessation Medications and DC Order Prescriptions: New losartan 50 mg Tablet 50 mg PO QAM Qty: 30 0RF Continued methylprednisolone [Medrol (Shahbaz)] 4 mg tablets,dose pack 4 mg PO DIRECTED Qty: 21 0RF cyanocobalamin (vitamin B-12) 100 mcg Tablet 100 mcg PO DAILY (DME) blood-glucose meter [Contour Next EZ Meter] Kit MISCELLANEOUS Rx Instructions: Use as directed methocarbamol 750 mg Tablet 750 mg PO QID PRN (Reason: Muscle spasms) mupirocin 2 % Ointment 1 applic TOPICAL DIRECTED clindamycin phosphate 1 % Lotion 1 applic TOPICAL BID metformin 1,000 mg Tablet Extended Release 24 Hr 1,000 mg PO DAILY (DME) Contour Next Test Strips Rx Instructions: Use as directed (DME) FreeStyle Gaudencio 3 Plus Sensor Rx Instructions: Use as directed (DME) FreeStyle Gaudencio 3 [place] Rx Instructions: Use as directed Multi Vitamin 1 tab PO QAM Vitamin D3 2,000 units PO QAM albuterol sulfate aerosol 2 puff PO QID PRN (Reason: Shortness Of Breath Or Wheezing) (DME) lancets Rx Instructions: Use as directed Discharge Orders: Discharge Order (Routine); Ordered 03/14/25 Ordered By: Luis Rosales Admission Data Admit Date/Time: 03/14/25 06:17 Attending Provider: Luis Rosales Admit Provider: Khalif Hcakett Primary Care Provider: Isaiah Romero Other Providers: Patrick Montano; Khalif Hackett
[2025-03-14] MEDS ORDERED: INSULIN ASPART PER UNIT CHARGE SC SCH (16:30)
[2025-03-15] MEDS ORDERED: methylPREDNISolone 4 MG TAB PO SCH ×2 (07:00→21:00)
[2025-03-15] MEDS ORDERED: CHOLECALCIFEROL 25 MCG (1000 UNITS) TAB PO SCH (09:00)
[2025-03-15] MEDS ORDERED: TAMSULOSIN HCL 0.4 MG CAP PO SCH (09:00)
[2025-03-16] MEDS ORDERED: methylPREDNISolone 4 MG TAB PO SCH (07:00)
[2025-03-17] MEDS ORDERED: methylPREDNISolone 4 MG TAB PO SCH (07:00)
[2025-03-18] MEDS ORDERED: methylPREDNISolone 4 MG TAB PO SCH (07:00)
[2025-03-19] MEDS ORDERED: methylPREDNISolone 4 MG TAB PO SCH (07:00)
== END 2025-03-14 14:56 | disposition home or self-care (01) | DRG 694 ==
LOC: ED 03:13 → EDINP 06:17 → INTOOBSV 06:17 → ASUINP 06:17 → EDINP 08:50